=== PATIENT | female | born 1960 | race Native Hawaiian/Other Pacific Islander ===

== ENCOUNTER 2021-06-01 18:56 | Inpatient (IN) | payer SELFPAY ==
[~2021-06-01] VITALS: Ht 152.4 cm; Wt 52.0 kg
[2021-06-01 19:59] LABS: BASO % 0.4 % (0.0-2.0); EOS # 0.1 (0.0-0.7); GRAN # 7.1 (1.4-6.5); GRAN % 79.3 % (42.2-75.2); HEMATOCRIT 37.4 % (37.0-47.0); HEMOGLOBIN 12.4 g/dl (12.5-16.0); LYMPH # 0.9 (1.2-3.4); LYMPH % 9.5 % (20.0-51.0); MEAN CELL VOLUME 88 fl (80.0-100.0); MEAN CORPUSCULAR HEMOGLOBIN 29 pg (27.0-31.0); MEAN CORPUSCULAR HGB CONC 33 g/dl (33.0-37.0); MEAN PLATELET VOLUME 10.8 fl (7.4-10.4); MONO # 0.9 (0.1-0.6); MONO % 9.5 % (1.7-9.3); PLATELET COUNT 212 K/mm3 (130-400); RED BLOOD COUNT 4.24 M/mm3 (4.10-5.30); REDCELL DISTRIBUTION WIDTH-CV 13.4 % (11.5-14.5)
[2021-06-01 20:19] LABS: C-REACTIVE PROTEIN 5.2 mg/dL (0.0-0.9); CALCIUM 9.1 mg/dL (8.4-10.2); CREATININE, serum 1.96 (0.52-1.25); POTASSIUM 3.2 mmol/L (3.4-5.0); TOTAL PROTEIN 8.2 gm/dL (6.4-8.2)
[2021-06-01 20:30] LABS: MAGNESIUM 1.8 mg/dL (1.6-2.3)
--- NOTE | 2021-06-02 | NUR ---
Patient to medical room 319 at this time. She is alert and oriented with complaints of pain in left side and feet. She states the pain is tolerable now, as she received pain meds in ED. HR is normal/regular and lungs are clear in upper lobes and diminished in bases. Her abdomen and lower extremities are tight and edematous with no pitting. Bowel sounds are still audible. Patient states she feels fluid overloaded. She is breathing RA with no signs of increased work of breathing. Patient is able to answer basic health history questions but is a poor historian overall; She is unable to recall home medications. Family is contacted to review medications but did not answer the phone. Patient has left upper arm fistula with audible bruit and palpable thrill. Patient is educated at this time of fall precautions and call light system. Bed alarm set and will continue to monitor for now.
[2021-06-02] MEDS ORDERED: ASPIRIN E.C. 8181 MG PO (01:31)
[2021-06-02] MEDS ORDERED: BENADRYL50 MG PO (01:32)
[2021-06-02] MEDS ORDERED: LIPITOR 40MG TA40 MG PO (01:32)
[2021-06-02] MEDS ORDERED: LOPRESSOR 225 MG/TAB PO (01:33)
[2021-06-02] MEDS ORDERED: NEPHROCAP PO (01:34)
[2021-06-02] MEDS ORDERED: VITAMIND3 5000 PO (01:35)
[2021-06-02] MEDS ORDERED: RENVELA800 MG PO (01:35)
[2021-06-02] MEDS ORDERED: REQUIP 0.5MG0.5 MG PO (01:36)
[2021-06-02] MEDS ORDERED: VENTOLIN0.09 MG IH (01:36)
[2021-06-02 02:58] VITALS: BP 125/56; PULSE 71; TEMP 97.7
--- NOTE | 2021-06-02 03:47 | NUR ---
Patient is itchy and warm at this time. She mentions she is allergic to morphine and always starts itching after getting morphine. This is added to her allergy list and Dr. Chaidez is contacted to obtain order for benadryl. Respiratory status was never compromised during this event.
[2021-06-02 06:26] VITALS: BP 146/56; PULSE 64; TEMP 97.5
[2021-06-02 09:09] VITALS: BP 137/59; PULSE 67; TEMP 97.7
--- NOTE | 2021-06-02 09:21 | NUR ---
Pt assessment complete. Pt is sitting up in bed upon entry, she just returned from using the restroom. Denies any pain. No SOB. Christie DELI/BAKERY ASSOCIATE in to see patient at this time. Awaiting dialysis at this time.
[2021-06-02 10:46] LABS: BASO # 0.1 (0.0-0.2); BASO % 0.7 % (0.0-2.0); EOS # 0.1 (0.0-0.7); EOS % 1.3 % (0-4.0); GRAN # 5.5 (1.4-6.5); GRAN % 73.6 % (42.2-75.2); LYMPH # 0.9 (1.2-3.4); LYMPH % 12.5 % (20.0-51.0); MEAN CELL VOLUME 87 fl (80.0-100.0); MEAN CORPUSCULAR HEMOGLOBIN 29 pg (27.0-31.0); MEAN CORPUSCULAR HGB CONC 33 g/dl (33.0-37.0); MEAN PLATELET VOLUME 10.6 fl (7.4-10.4); MONO # 0.9 (0.1-0.6); MONO % 11.4 % (1.7-9.3); PLATELET COUNT 230 K/mm3 (130-400); RED BLOOD COUNT 3.78 M/mm3 (4.10-5.30); REDCELL DISTRIBUTION WIDTH-CV 13.3 % (11.5-14.5)
[2021-06-02 10:56] LABS: ALBUMIN 3.4 gm/dL (3.5-5.0); CALCIUM 8.5 mg/dL (8.4-10.2); CREATININE, serum 2.83 (0.52-1.25); PHOSPHOROUS 4.3 mg/dL (2.5-4.5); POTASSIUM 3.5 mmol/L (3.4-5.0)
--- NOTE | 2021-06-02 10:56 | NUR ---
Initial visit; Patient thanked Harness Cutter for looking in on her and offering God's blessings. Harness Cutter will keep patient i her prayers.
--- NOTE | 2021-06-02 12:29 | NUR ---
Sw tried to complete intake, pt was not in room.
--- NOTE | 2021-06-02 12:39 | NUR ---
Sw tried to complete intake again. pt was not in room. Pt chart says self pay. Sw will need to ask about insurance, as pt is on dialysis etc.
[2021-06-02 13:15] VITALS: BP 137/63; PULSE 63
--- NOTE | 2021-06-02 13:34 | NUR ---
Patient tolerated HD tx with 4.3L fluid removal. Next planned HD tx pending labs.
[2021-06-02 16:27] VITALS: BP 139/59; PULSE 65; TEMP 98.1
[2021-06-02 20:00] VITALS: BP 145/59; PULSE 66; TEMP 98.2
--- NOTE | 2021-06-03 02:19 | NUR ---
Patient rates pain 10/10 in left flank area. She requests a pain patch. Dr. Chaidez notified and orders Kpad and to encourage Tylenol. Kpad and Tylenol provided. Will continue to monitor.
[2021-06-03 04:00] VITALS: BP 123/52; PULSE 61; TEMP 97.8
[2021-06-03 07:34] VITALS: BP 152/64; PULSE 68; TEMP 98
[2021-06-03 12:03] VITALS: BP 146/64; PULSE 67; TEMP 97.7
[2021-06-03 13:36] LABS: BASO # 0.1 (0.0-0.2); BASO % 0.7 % (0.0-2.0); EOS # 0.2 (0.0-0.7); EOS % 2.4 % (0-4.0); GRAN # 6.1 (1.4-6.5); GRAN % 74.5 % (42.2-75.2); HEMOGLOBIN 10.9 g/dl (12.5-16.0); LYMPH % 11.9 % (20.0-51.0); MEAN CORPUSCULAR HEMOGLOBIN 29 pg (27.0-31.0); MEAN CORPUSCULAR HGB CONC 32 g/dl (33.0-37.0); MEAN PLATELET VOLUME 10.9 fl (7.4-10.4); MONO # 0.8 (0.1-0.6); MONO % 9.9 % (1.7-9.3); PLATELET COUNT 233 K/mm3 (130-400); RED BLOOD COUNT 3.72 M/mm3 (4.10-5.30); REDCELL DISTRIBUTION WIDTH-CV 13.5 % (11.5-14.5)
[2021-06-03 13:37] LABS: HEMATOCRIT 34.1 % (37.0-47.0); MEAN CELL VOLUME 92 fl (80.0-100.0)
[2021-06-03 13:45] LABS: ALBUMIN 3.4 gm/dL (3.5-5.0); CALCIUM 8.6 mg/dL (8.4-10.2); CREATININE, serum 2.92 (0.52-1.25); PHOSPHOROUS 4.3 mg/dL (2.5-4.5); POTASSIUM 3.9 mmol/L (3.4-5.0)
--- NOTE | 2021-06-03 14:36 | NUR ---
horse stud worker met with patient to discuss discharge planning. Jens is and her spouse and two daughters reside in [place]. horse stud worker assisted patient complete a durable power of divorce attorney for health care naming her two daughters. Patient has applied for medicaid and currently receives dialysis at [facility]. Patient resides with her niece, Nikki, in [place] and will return there upon discharge today. Worker contacted patient's niece, Nikki, and advised of the above information. Nikki states they have an appointment to continue the disability process next week. Patient will discharge to Nikki's home this date and resume dialysis.
[2021-06-03 17:44] VITALS: BP 154/55; PULSE 68; TEMP 98.2
--- NOTE | 2021-06-03 17:52 | NUR ---
PATIENT TOLERATED HD TX WITH 3.7L OF FLUID REMOVAL. NEXT HD TX SCHEDULED FOR Sunday06/06/21 @ 0785 @ [facility].
--- NOTE | 2021-06-03 19:09 | NUR ---
PATIENT HAD AN OK DAY. PATIENT WENT TO DIALYSIS, TOLERATED WELL. DEEMED FIT FOR DISCHARGE. IV DC'D, CATHETER INTACT, NO SIGNS OF PHLEBITIS. DISCHARGE EDUCATION/INSTRUCTIONS GIVEN. PATIENT DENIES ANY FURTHER QUESTIONS OR CONCERNS. PRN TYLENOL GIVEN FOR ACHING BACK PAIN. PATIENT STATED THAT THIS HAS HELPED HER PAIN. VSS. PATIENT DENIES ANY FURTHER PAIN, DISCOMFORT, OR NEEDS AT THIS TIME. CALL LIGHT IN REACH. PATIENT WAITING FOR NIECE TO TRANSFER HER HOME.
== END 2021-06-03 19:26 | disposition home or self-care (01) | DRG 291 ==
LOC: COL.ER 18:56 → MEDICAL 22:22
PROVIDERS: Emergency Medicine; ADMIT Internal Medicine Nephrology
PROC: 5A1D70Z Performance of Urinary Filtration, Intermittent, Less than 6 Hours Per Day (ICD-10-PCS; principal; 2021-06-02)
DX: I13.2 Hypertensive heart and chronic kidney disease with heart failure and with stage 5 chronic kidney disease, or end stage renal disease (principal); N18.6 End stage renal disease; R18.8 Other ascites; I50.9 Heart failure, unspecified; E11.22 Type 2 diabetes mellitus with diabetic chronic kidney disease; K80.80 Other cholelithiasis without obstruction; J44.9 Chronic obstructive pulmonary disease, unspecified; I08.3 Combined rheumatic disorders of mitral, aortic and tricuspid valves; R07.81 Pleurodynia; Z99.2 Dependence on renal dialysis; Z79.82 Long term (current) use of aspirin; Z88.5 Allergy status to narcotic agent
CPT/HCPCS: J1815; J2270; J2405; J7030